=== PATIENT | female | born 1995 | race African-American/Black ===

== ENCOUNTER 2020-06-30 20:35 | Emergency (ER) | payer BC ==
--- NOTE | 2020-06-30 20:44 | PDOC ---
History of Present Illness - General Chief Complaint: Sore Throat Stated Complaint: SORE THROAT. R/O COVID Time Seen by Provider: 06/30/20 20:38 - History of Present Illness Initial Comments: This 25-year-old woman with a history of type I DM, anxiety/depression and frequent strep pharyngitis presents with 2-week history of sore throat without associated symptoms except for mild nasal congestion/runny nose today. Patient states that she has been very busy with school and was unable to come for strep test until today. Specifically, she denies fever/chills, cough, nausea/vomiting/diarrhea, chest or abdominal pain. She has no rash or stiff neck. Medications as noted below Non-smoker/no daily alcohol or other recreational drug use Patient is currently a manager nursing at [employer] Past History - Medical History Allergies/Adverse Reactions: Allergies Allergy/AdvReac Type Severity Reaction Status Date / Time No Known Allergies Allergy Verified 03/26/18 12:31 Home Medications: Ambulatory Orders Insulin Glargine,Hum.rec.anlog [Lantus (10mL VIAL) -] 30 units SQ HS 06/08/14 Insulin Lispro [Humalog] 0 unit SQ ACHS PRN 06/30/20 Sertraline HCl [Zoloft -] 50 mg PO DAILY 06/30/20 COPD: No Diabetes: Yes (diabetes mellitus type I) Psychiatric Problems: Yes (DEPRESSION/ANXIETY) - Immunization History Immunization Up to Date: Yes - Psycho-Social/Smoking History Smoking History: Never smoked Have you smoked in the past 12 months: No Review of Systems - Review of Systems Able to Perform ROS?: Yes Comments:: 12 point review of systems is negative except for what is noted in the history of present illness *Physical Exam - Physical Exam GENERAL: Young adult female, alert and oriented x3, no acute distress; oral temperature 99 F HEAD: Normal with no signs of trauma. EYES: PERRLA, EOMI, sclera anicteric, conjunctiva clear. ENT: Ears normal, nares patent, oropharynx moderately erythematous without exudates or masses. "Cobblestoning" oropharyngeal mucous membranes NECK: Supple, no significant cervical lymphadenopathy or other masses palpated LUNGS: Breath sounds equal, clear to auscultation bilaterally. No wheezes, and no crackles. HEART:Regular rate and rhythm, normal S1 and S2 without murmur, rub or gallop. ABDOMEN:.normal bowel sounds No guarding,tenderness or rebound.No masses No distention. EXTREMITIES: Normal range of motion, no edema. No clubbing or cyanosis. No erythema, or tenderness. NEUROLOGICAL: Cranial nerves II through XII grossly intact. Normal speech. No focal neurological deficits. SKIN: Warm, Dry, normal turgor, no rashes or lesions noted. Medical Decision Making - Medical Decision Making As noted above, this young adult female with a history of type I DM presents with a few week history of persistent sore throat. Today, she also has had nasal congestion and mild runny nose. Otherwise, she has no associated symptoms. Exam as noted above. Quick strep sent. Patient requested COVID testing and this was sent also. Quick strep negativethroat culture and sensitivity sent Clinical presentation most consistent with acute pharyngitis, although likely viral etiology since this patient has a history of frequent strep pharyngitis, throat culture and sensitivity has been sent. Patient has been advised to rest and drink plenty of fluids, using Motrin or Tylenol as needed for pain. She should return to the ER if she has severe pain with swallowing or difficulty swallowing. Also, she develops fever, cough, shortness of breath or chest pain Discharge - Discharge Information Problems reviewed: Yes Clinical Impression/Diagnosis: Pharyngitis Qualifiers: Pharyngitis/tonsillitis etiology: unspecified etiology Qualified Code(s): J02.9 - Acute pharyngitis, unspecified Condition: Stable Disposition: HOME - Follow up/Referral Referrals: Keny Sanchez MD [Primary Care Provider] - - Patient Discharge Instructions Patient Printed Discharge Instructions: DI for Pharyngitis/Tonsillopharyngitis -- Adult Additional Instructions: Rest; drink plenty of fluids Motrin/Tylenol as needed for pain Return to ER if you have worsening pain or develop high fever You will be contacted regarding results of your COVID test Contact regarding today's ER visit and follow-up as arranged - Post Discharge Activity
[2020-06-30 20:54] VITALS: BP 126/76; PULSE 93; TEMP 99; BMI 21.4
== END 2020-06-30 21:27 | disposition home or self-care (01) ==
LOC: FER 20:35
DX: J02.9 Acute pharyngitis, unspecified (principal)
CPT/HCPCS: 87070; 87077; 87880; 99283-25; U0003

== ENCOUNTER 2020-09-02 13:39 | Emergency (ER) | payer BC | END 2020-09-02 14:57 | disposition home or self-care (01) | LOC: JVIRT 13:39 | DX: Z11.59 Encounter for screening for other viral diseases (principal) | CPT/HCPCS: C9803; Q3014-GT; U0003 ==